=== PATIENT | male | born 1980 | race African-American/Black ===

== ENCOUNTER 2019-01-28 14:14 | Emergency (ER) | payer OTHER ==
[~2019-01-28] VITALS: Ht 180.3 cm; Wt 182.0 kg
[2019-01-28] MEDS ORDERED: IBUPROFEN600 MG PO (15:17)
[2019-01-28] MEDS ORDERED: FLEXERIL5 M1 PO (15:17)
[2019-01-28 15:52] VITALS: BP 141/84
== END 2019-01-28 15:52 | disposition home or self-care (01) | DRG 103 ==
LOC: ED 14:14
DX: R51 Headache (principal); S46.912A Strain of unspecified muscle, fascia and tendon at shoulder and upper arm level, left arm, initial encounter; F17.210 Nicotine dependence, cigarettes, uncomplicated; V49.40XA Driver injured in collision with unspecified motor vehicles in traffic accident, initial encounter